=== PATIENT | female | born 1975 | race Caucasian/White ===

== ENCOUNTER 2016-10-28 15:49 | Emergency (ER) | payer OTHER ==
[~2016-10-28] VITALS: Ht 162.6 cm; Wt 81.6 kg
--- NOTE | 2016-10-28 16:30 | NUR ---
CALLED; NO ANSWER
--- NOTE | 2016-10-28 16:50 | NUR ---
TO ER BED - 18, AWAITING FOR MD TO SEE
[2016-10-28] MEDS ORDERED: CEFTRIAXONE 1 G in IV D5W 50 ML IV STA (16:54)
[2016-10-28] MEDS ORDERED: DEXAMETHASONE SOD PHOSPHATE 10 MG/ML VIAL ONE (16:57)
[2016-10-28] MEDS ORDERED: CEFTRIAXONE 1GM BAG (ER ONLY) 50 ML IV ONE (16:58)
[2016-10-28] MEDS ORDERED: IV NS 0.9% 1,000 ML ONE (16:58)
[2016-10-28] MEDS ORDERED: IV SET PRIMARY 1 EA INFUS.SET MC ONE (16:58)
[2016-10-28] MEDS ORDERED: DEXAMETHASONE SOD PHOSPHATE 10 MG/ML VIAL IV ONE (17:00)
[2016-10-28] MEDS ORDERED: IV NS 0.9% 1,000 ML BAG IV ONE (17:00)
[2016-10-28 17:07] LABS: BASOPHILS % (AUTO) 0.5 % (0.0-2.0); EOSINOPHILS # (AUTO) 0.3 /CMM (0.0-0.7); EOSINOPHILS % (AUTO) 4.5 % (0.0-6.0); HEMATOCRIT 38 % (33-45); HEMOGLOBIN 12.7 g/dL (11.5-14.8); LYMPHOCYTES # (AUTO) 2.2 /CMM (0.8-4.8); LYMPHOCYTES % (AUTO) 31.1 % (20.0-44.0); MEAN CORPUSCULAR HEMOGLOBIN 28 PG (26.0-33.0); MEAN CORPUSCULAR HGB CONC 33 g/dl (31.0-36.0); MEAN CORPUSCULAR VOLUME 85 fL (82-100); MONOCYTES # (AUTO) 0.4 /CMM (0.1-1.30); MONOCYTES % (AUTO) 6.2 % (2.0-12.0); NEUTROPHILS # (AUTO) 4.2 /CMM (1.8-8.9); NEUTROPHILS % (AUTO) 57.7 % (43.0-81.0); PLATELET COUNT (AUTO) 318 /CMM (150-450); RDW COEFFICIENT OF VARIATION 13.2 (11.5-15.0); RED BLOOD CELL COUNT(AUTO) 4.49 MIL/uL (4.0-5.2); WHITE BLOOD COUNT (AUTO) 7.1 K/uL (4.3-11.0)
[2016-10-28 17:14] LABS: CALCIUM, SERUM 8.6 mg/dL (8.5-10.1); CREATININE 0.7 mg/dL (0.6-1.3); POTASSIUM 4.1 mmol/L (3.5-5.1)
--- NOTE | 2016-10-28 17:18 | NUR ---
PATIENT GIVEN ROCEPHIN IVPB AND DECADRON IVP PER MD ORDERS. 1L NS RUNNING, WILL CONTINUE TO MONITOR.
[2016-10-28] MEDS ORDERED: IV SET PRIMARY PUMP SET 1 EA INFUS.SET MC ONE (17:20)
[2016-10-28] MEDS ORDERED: CLINDAMYCIN 900 MG in IV D5W 100 ML IV ONE (17:30)
[2016-10-28] MEDS ORDERED: IOHEXOL-300 100 ML VIAL IV ONE (17:34)
[2016-10-28] MEDS ORDERED: IV NS 0.9% 250 ML IV ONE (17:34)
[2016-10-28] MEDS ORDERED: CT SWABBABLE VALVE TRANS SET 1 EA INFUS.SET MC ONE (17:34)
--- NOTE | 2016-10-28 17:35 | NUR ---
PATIENT TAKEN TO CT VIA WHEELCHAIR.
--- NOTE | 2016-10-28 17:50 | NUR ---
PATIENT RETURNED FROM CT SCAN, REMAINS STABLE.
--- NOTE | 2016-10-28 18:32 | NUR ---
PATIENT CLEARED FOR DISCHARGE. PATIENTS VITALS STABLE. PRESCRTIPTION GIVEN TO PATIENT. IV REMOVED, ID BAND REMOVED. PATIENT PROVIDED WITH DISCHARGE TEACHING REGARDING PRESCRIPTION AND NEED TO F/U WITH PRIMARY MD. PATIENT VERBALIZES UNDERSTANDING. ALL NEEDS MET, PATIENT LEFT AMBULATORY.
[2016-10-28 18:34] VITALS: BP 135/87
== END 2016-10-28 18:35 | disposition home or self-care (01) ==
LOC: ER 15:53
DX: J02.0 Streptococcal pharyngitis (principal); J45.909 Unspecified asthma, uncomplicated; F31.9 Bipolar disorder, unspecified; Z88.0 Allergy status to penicillin; Z91.013 Allergy to seafood
CPT/HCPCS: 36415; 70491; 80048; 85025; 96365; 96368; 96375; 99285; A4606; J0696; J1100; J3490; J7030; J7050; J7060; Q9967; Z7610